=== PATIENT | male | born 1960 | race Caucasian/White ===

== ENCOUNTER 2023-05-08 08:03 | Outpatient (OUT) | payer OTHER, SELFPAY ==
--- NOTE | 2023-05-08 08:12 | US_ITS ---
The [address] [address] Patient Name: STEVE GENAO MRN: [id number] date: 1960 Sex: M Assigned Patient Location: US Current Patient Location: Accession/Order Number: [id number] Exam Date: 05/08/2023 08:18 Report Date: 05/08/2023 09:11 At the request of: AR ARECHIGA Procedure: US renal BI EXAMINATION: US renal BI HISTORY: Gross Hematuria R31.0 COMPARISON: No relevant comparison available. TECHNIQUE: Ultrasound examination was performed of the bladder. FINDINGS: Right Kidney: Normal in size, contour and echotexture with no focal solid mass, hydronephrosis or obstructing nephrolithiasis. The cortex measures 1.6 cm. Height: 4.8 cm Length: 9.7 cm Width: 5.4 cm Left Kidney: Normal in size, contour and echotexture with no focal solid mass, hydronephrosis or obstructing nephrolithiasis. The cortex measures 1.5 cm. Area of anechoic echogenicity lateral cortex measuring 1.6 cm, simple cortical cyst Height: 5.5 cm Length: 10.6 cm Width: 4.8 cm The urinary bladder measures 4.5 x 4.6 x 5.0 cm with volume of 74 mL. The ureteral jets are not visualized US/US renal BI IMPRESSION: 1.6 cm left renal cortical cyst Electronically authenticated by: STEVE MOFFETT Date: 05/08/2023 09:11
== END 2023-05-08 08:04 | disposition home or self-care (01) ==
PROVIDERS: PCP Orthopaedic Surgery; Visit Provider Urology
DX: R31.0 Gross hematuria (principal); N28.1 Cyst of kidney, acquired
CPT/HCPCS: 76775

== ENCOUNTER 2024-08-22 08:20 | Outpatient (OUT) | payer OTHER, SELFPAY ==
[2024-08-22 08:39] LABS: Basophils Absolute Auto 0.1 10^3/uL (0.0-0.1); Basophils Percent Auto 1.1 % (0.2-2.0); Eosinophils Absolute Auto 0.4 10^3/uL (0.0-0.7); Eosinophils Percent Auto 6.3 % (0.9-7.0); Hematocrit 43.4 % (42.0-54.0); Hemoglobin 15.1 g/dL (14.0-18.0); Immature Granulocytes Abs Auto 0.02 10^3/uL (0.00-0.03); Immature Granulocytes Pct Auto 0.3 % (0.0-0.5); Lymphocytes Absolute Auto 1.9 10^3/uL (1.2-3.8); Lymphocytes Percent Auto 29.3 % (20.5-60.0); Mean Corpuscular HGB Conc 34.8 g/dL (29.9-35.2); Mean Corpuscular Hemoglobin 32.3 pg (25.9-34.0); Mean Corpuscular Volume 92.7 fL (80.0-94.0); Mean Platelet Volume 9.6 fL (9.5-13.5); Monocytes Absolute Auto 0.7 10^3/uL (0.3-0.8); Monocytes Percent Auto 11.3 % (1.7-12.0); Neutrophils Absolute Auto 3.4 10^3/uL (1.4-6.5); Neutrophils Percent Auto 51.7 % (43.0-75.0); Platelet Count 160 10^3/uL (150-450); Red Blood Count 4.68 10^6/uL (4.70-6.10); Red Cell Distribution Width 13.2 % (11.0-15.0); White Blood Count 6.6 10^3/uL (4.0-11.0)
[2024-08-22 10:10] LABS: Alanine Aminotransferase 42 U/L (16-63); Albumin Level 3.5 g/dL (3.4-5.0); Alkaline Phosphatase 70 U/L (46-116); Anion Gap 15.5; Aspartate Amino Transferase 27 U/L (15-37); BUN Creatinine Ratio 11.9; Carbon Dioxide 26.2 mmol/L (21.0-32.0); Chloride 105 mmol/L (98-107); Estimated GFR (African America >60 (>=60 mL/min/1.73m^2); Estimated GFR (Non-African Ame >60 (>=60 mL/min/1.73m^2); Globulin 3.5 g/dL; Glucose 115 mg/dL (74-106); Potassium 3.7 mmol/L (3.5-5.1); Sodium 143 mmol/L (136-145)
[2024-08-22 10:11] LABS: Chol HDL Ratio 5.4; Cholesterol 222 mg/dL (<=200); HDL Cholesterol 41 mg/dL (40-60); Triglycerides 97 mg/dL (<=150); VLDL CHOLESTEROL 19.4 mg/dL
[2024-08-22 10:23] LABS: Prostate Specific Antigen Scrn 0.92 ng/mL (<=4.00)
[2024-08-24 01:39] LABS: Microalbum Creatinine Ratio Ur 46.1 mg/g (0.0-29.9); Microalbumin Urine Random 5.5 mg/dL (<=30.0)
[2024-08-24 02:32] LABS: Estimated Average Glucose 120 mg/dL; Glycohemoglobin A1C 5.8 % (4.5-6.2)
== END 2024-08-22 08:21 | disposition home or self-care (01) ==
LOC: LAB 08:22
PROVIDERS: PCP Internal Medicine; Visit Provider Internal Medicine
DX: E78.2 Mixed hyperlipidemia (principal); E11.9 Type 2 diabetes mellitus without complications; I10 Essential (primary) hypertension; Z12.5 Encounter for screening for malignant neoplasm of prostate
CPT/HCPCS: 36415; 80053; 80061; 82043; 82570; 83036; 85025; G0103